=== PATIENT | female | born 1990 | race Hispanic/Latino ===

== ENCOUNTER 2020-04-28 02:32 | Emergency (ER) | payer OTHER, SELFPAY ==
--- NOTE | ~2020-04-28 | XR_ITS ---
EXAMINATION: XR chest 1V portable DATE: 04/28/2020 03:34 INDICATION: Shortness of breath and chest tightness TECHNIQUE: frontal view of the chest was obtained. COMPARISON: Chest radiograph dated 09/18/2018 FINDINGS: The lungs remain clear with no focal airspace opacities, pulmonary edema, pleural effusion or pneumot horax. The cardiomediastinal silhouette is normal. Mild thoracic dextrocurvature. Cholecystectomy cli ps in the right upper quadrant. IMPRESSION: 1. No acute cardiopulmonary disease. Reviewed, dictated and finalized at location A.
[2020-04-28 02:37] VITALS: BP 109/77; PULSE 56; RESP 16; TEMP 36.5; O2SAT 100
[2020-04-28 03:30] LABS: Basophils Percent Auto 0.4 % (0.2-1.2); Eosinophils Absolute Auto 0.3 K/mm3 (0-0.3); Eosinophils Percent Auto 3.3 % (0-4.4); Hematocrit 41.2 % (37.0-47.0); Hemoglobin 14.1 g/dL (12.0-15.0); Immature Granulocyte Absolute 0.07 K/mm3 (0.00-0.031); Immature Granulocyte Percent A 0.7 % (0-0.5); Lymphocytes Absolute Auto 2.08 K/mm3 (0.9-3.2); Lymphocytes Percent Auto 21.6 % (18.3-44.2); Mean Corpuscular HGB Conc 34.2 g/dl (32-36); Mean Corpuscular Hemoglobin 31.1 pg (26-34); Mean Corpuscular Volume 90.7 fl (80-100); Mean Platelet Volume 9.9 fl (7.4-10.4); Monocytes Absolute Auto 0.6 K/mm3 (0.1-0.6); Monocytes Percent Auto 5.7 % (2.6-8.5); Neutrophils Absolute Auto 6.6 K/mm3 (1.3-6.7); Neutrophils Percent Auto 68.3 % (45.5-73.1); Platelet Count Result 283 k/mm3 (150-375); Red Blood Count 4.54 M/mm3 (4.2-5.4); Red Cell Distribution Width 13.1 % (11.5-14.5); White Blood Count 9.6 K/mm3 (4.5-10.0)
[2020-04-28 03:43] LABS: D Dimer 0.27 ug/mL (<0.48)
[2020-04-28 03:44] LABS: Alanine Aminotransferase 83 U/L (4-35); Albumin Level 4.4 g/dL (3.5-5.1); Alkaline Phosphatase 63 U/L (38-126); Aspartate Amino Transferase 60 U/L (14-36); Bilirubin,Total 0.5 mg/dL (0.2-1.3); Blood Urea Nitrogen 8 mg/dL (7-17); Calcium 9.2 mg/dL (8.4-10.2); Carbon Dioxide 28 mmol/L (22-30); Chloride 102 mmol/L (98-107); Estimated Glomerular Filt Rate > 60; Glucose 98 mg/dL (65-105); Potassium 4.3 mmol/L (3.4-5.0); Sodium 135 mmol/L (137-145)
[2020-04-28 04:30] VITALS: BP 112/73; PULSE 71; RESP 16; O2SAT 100
--- NOTE | 2020-04-28 05:50 | ED.URI ---
HPI - URI/Sore Throat General Chief Complaint: Upper Respiratory Infection Stated Complaint: Sore throat, chest tightness Time Seen by Provider: 04/28/20 02:50 History of Present Illness HPI Narrative: Patient is a 29-year-old female who presents ER with upper respiratory complaints. Ongoing for the last 5 days. Began with sinus congestion as well as sore throat and occasional cough. Patient reports she is now slightly more dyspneic and anxious. Reports that she found out that her brother tested positive for COVID-19 and she is exposed him on 04/25/2020. She reports she was in his immediate vicinity for prolonged duration, received a kiss on the cheek from him, and He Was Sneezing around Her. Denies any fevers or chills or sweats. No body aches. Related Data Home Medications Medication Instructions Recorded Confirmed fluoxetine mg 04/28/20 Allergies Allergy/AdvReac Type Severity Reaction Status Date / Time diphenhydramine AdvReac Hyperactive Verified 04/28/20 02:51 [From Tung] Review of Systems Review of Systems: All systems reviewed & are unremarkable except as noted in HPI and below Constitutional: Constitutional: Denies chills, Denies fever(s) and Denies weakness ENT: Denies dizziness, Reports nasal congestion and Reports sore throat Cardiovascular: Cardiovascular: Denies chest pain Respiratory: Respiratory: Reports cough, Reports dyspnea and Denies wheezing Gastrointestinal: Gastrointestinal: Denies abdominal pain, Denies nausea and Denies vomiting Musculoskeletal: Musculoskeletal: Denies myalgias and Denies muscle cramps Psychiatric: Psychiatric: Reports anxiety PMFSH Past Medical History Medical History (Updated 04/28/20 @ 05:55 by Navin Hudson MD) Anxiety Surgical History Surgical History (Updated 04/28/20 @ 05:51 by Navin Hudson MD) No pertinent past surgical history Social History Social History Smoking status: Never smoker Gender identity (if verbalized by the patient): Female Exam Narrative: Exam Narrative: GENERAL: Well-appearing, well-nourished, and in no acute distress. HEAD: Normocephalic, atraumatic. ENT: Mucous membranes moist. Mild posterior oropharynx erythema without tonsillar hypertrophy or exudate. NECK: Supple. CHEST: Clear to auscultation. No respiratory distress. HEART: Regular rate and rhythm. Normal peripheral pulses. EXTREMITIES: Normal range of motion. No edema. NEURO: Alert and oriented x3. Course Course Emergency Course: Patient informed of results. Recommend that she continue social distance as her COVID testing that was performed today would not necessarily indicate whether she had caught something from her brother but only if she got something from her workplace that started on the second. Recommend she follow-up with her primary care doctor to receive further recommendations on when she should return to work. Boyfriend present and has been educated that he should also go home and self isolate and should not stay in her immediate vicinity. Vital Signs Vital signs: Vital Signs Temperature 97.7 F 04/28/20 02:37 Pulse Rate 56 L 04/28/20 02:37 Respiratory Rate 16 04/28/20 02:37 Blood Pressure 109/77 04/28/20 02:37 Pulse Oximetry 100 04/28/20 02:37 Temperature 97.7 F 04/28/20 02:37 Pulse Rate 56 L 04/28/20 02:37 Respiratory Rate 16 04/28/20 02:37 Blood Pressure 109/77 04/28/20 02:37 Pulse Oximetry 100 04/28/20 02:37 MDM - URI/Sore Throat Lab Data Result diagrams: 04/28/20 03:24 04/28/20 03:24 Labs: Lab Results 04/28/20 04/28/20 04/28/20 Range/Units 03:22 03:24 03:24 WBC 9.6 (4.5-10.0) K/mm3 RBC 4.54 (4.2-5.4) M/mm3 Hgb 14.1 (12.0-15.0) g/dL Hct 41.2 (37.0-47.0) % MCV 90.7 (80-100) fl MCH 31.1 (26-34) pg MCHC 34.2 (32-36) g/dl RDW 13.1 (11.5-14.5) % P
[2020-04-28 05:51] VITALS: BP 107/67; PULSE 75; RESP 16; O2SAT 100
[2020-04-28 14:57] LABS: SARS-CoV-2 RNA PCR Negative
== END 2020-04-28 06:08 | disposition home or self-care (01) ==
PROVIDERS: Emergency Provider Emergency Medicine; PCP Emergency Medicine
DX: J06.9 Acute upper respiratory infection, unspecified (principal); Z20.828 Contact with and (suspected) exposure to other viral communicable diseases; F41.9 Anxiety disorder, unspecified
CPT/HCPCS: 36415; 71045; 80053; 85025; 85380; 87635; 87880; 99283; C9803; U0003

== ENCOUNTER 2020-05-14 13:01 | Outpatient (CLI) | payer OTHER, SELFPAY ==
--- NOTE | ~2020-05-14 | XR_ITS ---
EXAMINATION: XR thoracic spine 3V EXAM DATE: 05/14/2020 13:30 INDICATION: Back pain. TECHNIQUE: Frontal and lateral projections of the thoracic spine as well as lateral swimmers projecti on of the upper thoracic spine for interpretation. There is no prior study for comparison. FINDINGS: The vertebral bodies are aligned in the AP dimension. There is mild lower thoracic disc di sease. Mild chronic appearing anterior wedging at T12. The vertebral body and disc heights are otherw ise well maintained. No endplate erosive change. Mild thoracolumbar spine curvature which could be positional. There are cholecystectomy clips. IMPRESSION: Mild lower thoracic disc disease. Reviewed, dictated and finalized at location A.
--- NOTE | ~2020-05-14 | XR_ITS ---
EXAMINATION: XR lumbar spine 2-3V EXAM DATE: 05/14/2020 13:30 INDICATION: Low back pain. TECHNIQUE: Lumber spine frontal, lateral, lateral L5-S1 projections for interpretation. There is no prior study for comparison. FINDINGS: There is mild disc disease at T11-12 and T12-L1, mild anterior wedge appearance to T11 whi ch could be congenital or old compression fracture. Mild lower lumbar facet arthropathy. No endplate erosive change or spondylolysis. Paraspinal soft tissue is unremarkable. Sacrum, sacroiliac joints, s acral arcuate lines are intact. There are cholecystectomy clips. IMPRESSION: 1. Mild lower thoracic disc disease. 2. Mild lower lumbar facet arthropathy. Reviewed, dictated and finalized at location A.
--- NOTE | ~2020-05-14 | XR_ITS ---
EXAMINATION: XR cervical spine 4-5V EXAM DATE: 05/14/2020 13:30 INDICATION: Neck pain. TECHNIQUE: Cervical spine frontal, lateral, lateral swimmers, and open-mouth odontoid projections. There is no prior study for comparison. FINDINGS: There is mild reversal of the normal cervical lordosis which may be positional or spasm. Th ere is no evidence of acute cervical fracture. The odontoid process is intact. Pre-dens space is no rmal. Prevertebral soft tissue is normal. There are no soft tissue abnormalities identified. The vertebral bodies are aligned. No evidence of arthropathy. Vertebral body and disc heights are well-ma intained. IMPRESSION: Mild reversal of normal cervical lordosis. Reviewed, dictated and finalized at location A.
== END 2020-05-14 13:02 | disposition home or self-care (01) ==
LOC: ANHIMG 13:05
PROVIDERS: PCP Emergency Medicine; Visit Provider Emergency Medicine
DX: M54.2 Cervicalgia (principal); M51.34 Other intervertebral disc degeneration, thoracic region; M51.24 Other intervertebral disc displacement, thoracic region
CPT/HCPCS: 72050; 72072; 72100

== ENCOUNTER 2020-06-29 01:13 | Outpatient (CLI) | payer OTHER, SELFPAY ==
[2020-06-29 16:32] LABS: SARS-CoV-2 RNA PCR Negative
== END 2020-06-29 01:14 | disposition home or self-care (01) ==
LOC: ANHCOVIDDT 01:13
PROVIDERS: PCP Emergency Medicine; Visit Provider Obstetrics & Gynecology
DX: Z01.812 Encounter for preprocedural laboratory examination (principal); Z20.828 Contact with and (suspected) exposure to other viral communicable diseases
CPT/HCPCS: 87635; C9803; U0003

== ENCOUNTER 2020-09-04 21:33 | Emergency (ER) | payer OTHER, SELFPAY ==
[2020-09-04] VITALS (7 sets, daily range): BP systolic 113–114; BP diastolic 69–81; PULSE 79–80; RESP 18–24; TEMP 36.8; O2SAT 97–99
--- NOTE | 2020-09-04 22:25 | ED.ANXIETY ---
HPI - Anxiety General Chief Complaint: Anxiety Stated Complaint: panic attack Time Seen by Provider: 09/04/20 21:45 Source: patient Mode of arrival: EMS Limitations: no limitations History of Present Illness HPI narrative: This is 29 year old female with history of anxiety and depression who presents after having a panic attack. Patient reports she has severe anxiety. She has been having daily panic attacks. She has been intermittently taking prozac for her anxiety, but she has not been on this medication for months. She reports she was fired by her PCP Dr. Walls months ago, and she has been on a waiting list to get treatment at [facility] for 2 months. She states she lives her boyfriend who seems to be her trigger for a lot of her attacks. She reports he left the house tonight and she developed a panic attack. She states she is unable to control them. She reports she is having trouble sleeping and she has tried calming tea. She states her family and friends do not like her boyfriend because of how he treats her so she no one will listen to her about her attacks. She denies suicidal or homicidal thoughts today. On EMS arrival, patient was found to be hyperventilating they were able to get her to calm down her breathing. She reports she still feels shaking all over. Related Data Home Medications Medication Instructions Recorded Confirmed fluoxetine 10 mg PO DAILY 04/28/20 06/25/20 albuterol sulfate [ProAir HFA] 1 puff INHALATION DIRECTED PRN 06/25/20 06/25/20 ibuprofen 600 mg PO Q6H PRN 06/25/20 06/25/20 Allergies Allergy/AdvReac Type Severity Reaction Status Date / Time diphenhydramine AdvReac Hyperactive Verified 06/25/20 08:42 [From Benadryl] Review of Systems Review of Systems: All systems reviewed & are unremarkable except as noted in HPI and below Cardiovascular: Cardiovascular: Denies chest pain and Reports rapid heart rate (with panic attacks) Respiratory: Respiratory: Denies cough and Reports dyspnea (feels like she cant breath with panic attacks. ) Gastrointestinal: Gastrointestinal: Denies abdominal pain, Reports nausea and Reports vomiting Psychiatric: Psychiatric: Reports anxiety, Denies homicidal ideation and Denies suicidal ideation [facility] Past Medical History Medical History Anxiety Asthma Back pain Depression Eczema Obesity Surgical History Surgical History No pertinent past surgical history Social History Social History Smoking status: Never smoker Alcohol intake: current Drinks per week: 1 Gender identity (if verbalized by the patient): Female Spiritual care concerns: No Exam Const: General: no acute distress and alert Orientation/consciousness: patient oriented x3 HENMT: Head: normocephalic and atraumatic Face and sinus: face symmetric Throat: posterior oropharynx normal Eyes: EOM: EOMs intact bilaterally Chest: Chest palpation & inspection: normal inspection of the chest Resp: Effort & Inspection: normal respiratory effort and no retractions Auscultation: clear to auscultation bilaterally Cardio: Rate: regular rate Rhythm: regular rhythm Heart sounds: no murmurs GI: GI Palp: Yes Soft to palpation, No Tenderness to palpation present (GI) and No Guarding due to palpation present (GI) Auscultation: normal bowel sounds Skin: General skin exam: normal color Rashes: no rashes Neuro: General: patient oriented x3 and moves all extremities Extrem: General: no pedal edema Psych: Affect: Sad affect present Attitude: cooperative Thought content: No Suicidality present and No Homicidality present Course Reevaluation(s) Reevaluation #1: I have discussed with patient that she will need to get established with a new primary care physician. We discussed ideas for how to deal with
[2020-09-04] MEDS: ALPRAZolam (*CRX) 0.25 MG TABLET PO (22:34)
== END 2020-09-04 23:48 | disposition home or self-care (01) ==
PROVIDERS: Emergency Provider General Practice
DX: F41.9 Anxiety disorder, unspecified (principal); J45.909 Unspecified asthma, uncomplicated; F32.9 Major depressive disorder, single episode, unspecified; E66.9 Obesity, unspecified; Z68.30 Body mass index [BMI] 30.0-30.9, adult
CPT/HCPCS: 81025; 99283; A9270

== ENCOUNTER 2020-12-23 19:56 | Emergency (ER) | payer OTHER, SELFPAY ==
[2020-12-23 20:00] VITALS: BP 113/81; PULSE 110; RESP 18; TEMP 36.7; O2SAT 99
--- NOTE | 2020-12-23 20:33 | PC.NURSE ---
Called [place] poison control per the dose the pt took and her weight it was a non toxic dose. They recommend baseline labs including a mag and baseline EKG since it can cause a prolonged QT. Dose usually peaks in 1-3 hours.
[2020-12-23 20:51] LABS: Basophils Absolute Auto 0.1 K/mm3 (0.0-0.1); Basophils Percent Auto 0.6 % (0.2-1.2); Eosinophils Absolute Auto 0.2 K/mm3 (0-0.3); Eosinophils Percent Auto 2.6 % (0-4.4); Hematocrit 42.4 % (37.0-47.0); Hemoglobin 14.5 g/dL (12.0-15.0); Immature Granulocyte Absolute 0.06 K/mm3 (0.00-0.031); Immature Granulocyte Percent A 0.7 % (0-0.5); Lymphocytes Absolute Auto 1.91 K/mm3 (0.9-3.2); Lymphocytes Percent Auto 21.9 % (18.3-44.2); Mean Corpuscular HGB Conc 34.2 g/dl (32-36); Mean Corpuscular Hemoglobin 31.2 pg (26-34); Mean Corpuscular Volume 91.2 fl (80-100); Mean Platelet Volume 9.8 fl (7.4-10.4); Monocytes Absolute Auto 0.6 K/mm3 (0.1-0.6); Monocytes Percent Auto 6.7 % (2.6-8.5); Neutrophils Absolute Auto 5.9 K/mm3 (1.3-6.7); Neutrophils Percent Auto 67.5 % (45.5-73.1); Platelet Count Result 305 k/mm3 (150-375); Red Blood Count 4.65 M/mm3 (4.2-5.4); Red Cell Distribution Width 13.3 % (11.5-14.5); White Blood Count 8.7 K/mm3 (4.5-10.0)
[2020-12-23 20:54] LABS: Add Urine Microscopic? YES; Amorphous Sediment Urine Few; Appearance Urine Clear (Clear); Bacteria Urine Trace /hpf; Bilirubin Urine Negative (Negative); Blood Urine Negative (Negative); Color Urine Colorless (Yellow); Glucose Urine UA Negative (Negative); Ketones Urine Negative (Negative); Leukocyte Esterase Ur 2+ LEU/UL (Negative); Nitrate Urine Negative (Negative); Protein Urine Negative (Negative); Squamous Epithelial Cell Urine Occasional /hpf (Few); Urobilinogen Urine Negative mg/dL (<2.0)
--- NOTE | 2020-12-23 20:59 | ECG_ITS ---
Measurements Intervals [place] Rate: 85 P: 51 WI: 210 QRS: 64 QRSD: 82 T: 41 QT: 388 QTc: 462 Interpretive Statements SINUS RHYTHM WITH FIRST DEGREE AV BLOCK POSSIBLE LEFT ATRIAL ENLARGEMENT ABNORMAL ECG Electronically Signed On 12-24-2020 7:13:43 CERTIFIED BREASTFEEDING EDUCATOR by Hola Martinez D.O.
[2020-12-23 21:01] LABS: Partial Thromboplastin Time 30.7 SECONDS (22.3-36.8); Prothrombin Time 13.9 Seconds (11.1-14.7); Specific Grav Ur 1.002 (1.001-1.035)
[2020-12-23 21:03] LABS: Acetaminophen < 10 ug/mL (10-30); Ethanol 89 mg/dL (<10); Salicylate < 1.0 mg/dL (2-20)
[2020-12-23 21:04] LABS: Alanine Aminotransferase 202 U/L (4-35); Albumin Level 4.7 g/dL (3.5-5.1); Alkaline Phosphatase 57 U/L (38-126); Anion Gap 12 mmol/L (8-16); Aspartate Amino Transferase 180 U/L (14-36); Bilirubin,Total 0.5 mg/dL (0.2-1.3); Blood Urea Nitrogen 8 mg/dL (7-17); Calcium 9.4 mg/dL (8.4-10.2); Carbon Dioxide 23 mmol/L (22-30); Chloride 106 mmol/L (98-107); Estimated CRCL calculation 124 ml/min; Estimated Glomerular Filt Rate > 60; Glucose 103 mg/dL (65-105); Potassium 3.6 mmol/L (3.4-5.0); Sodium 141 mmol/L (137-145)
[2020-12-23 21:15] LABS: Amphetamine Screen Urine Negative (Negative); Barbiturate Screen Urine Negative (Negative); Benzodiazepines Screen Urine Negative (Negative); Cannabinoid Screen Urine Negative (Negative); Cocaine Screen Urine Negative (Negative); Magnesium 1.9 mg/dL (1.6-2.3); Methadone Screen Urine Negative (Negative); Opiate Screen Urine Negative (Negative); Phencyclidine Screen Urine Negative (Negative)
[2020-12-23 22:31] LABS: Free T4 Free Thyroxine Reflex 0.85 ng/dL (0.78-2.19)
[2020-12-23 22:51] VITALS: BP 98/65; PULSE 96; RESP 16; O2SAT 95
[2020-12-23 23:31] LABS: Total Triiodothyronine (T3) 1.31 NG/ML (0.97-1.69)
--- NOTE | 2020-12-24 01:12 | ED.PSYCH ---
HPI - Psych General Chief Complaint: Psychiatric Symptoms Stated Complaint: overdose Time Seen by Provider: 12/23/20 19:56 History of Present Illness HPI Narrative: Patient is a 30-year-old female who presents ER after ingesting 300 mg of hydroxyzine. Patient reports that she is having a panic attack because her boyfriend is in [place] and has been cheating on her. She reports she has had some alcohol to drink today. She does have history of suicide attempt but reports this was not an attempt on her life, who is merely an attempt to control her anxiety. Patient is not experiencing any auditory or visual hallucinations. She has no other complaints at this time. Denies coingestants outside of alcohol. Related Data Home Medications Medication Instructions Recorded Confirmed fluoxetine 10 mg PO DAILY 04/28/20 06/25/20 albuterol sulfate [ProAir HFA] 1 puff INHALATION DIRECTED PRN 06/25/20 06/25/20 ibuprofen 600 mg PO Q6H PRN 06/25/20 06/25/20 buspirone 7.5 mg BID 12/23/20 hydroxyzine HCl 12/23/20 Allergies Allergy/AdvReac Type Severity Reaction Status Date / Time diphenhydramine AdvReac Hyperactive Verified 12/23/20 20:08 [From Benadryl] Review of Systems Review of Systems: All systems reviewed & are unremarkable except as noted in HPI and below Constitutional: Constitutional: Denies chills, Denies fever(s) and Denies weakness Cardiovascular: Cardiovascular: Denies chest pain and Denies radiating jaw, neck or arm pain Respiratory: Respiratory: Denies cough and Denies dyspnea Gastrointestinal: Gastrointestinal: Denies abdominal pain, Denies nausea and Denies vomiting Psychiatric: Psychiatric: Reports anxiety, Denies depression, Denies homicidal ideation and Denies suicidal ideation PMF Past Medical History Medical History Anxiety Asthma Back pain Depression Eczema Obesity Surgical History Surgical History No pertinent past surgical history Social History Social History Smoking status: Never smoker Alcohol intake: current Drinks per week: 1 Gender identity (if verbalized by the patient): Female Spiritual care concerns: No Exam Narrative: Exam Narrative: GENERAL: Well-appearing, well-nourished, and in no acute distress. HEAD: Normocephalic, atraumatic. ENT: Mucous membranes moist. CHEST: Clear to auscultation. No respiratory distress. HEART: Regular rate and rhythm. Normal peripheral pulses. ABDOMEN: Soft, nontender, nondistended. EXTREMITIES: Normal range of motion. No edema. NEURO: Alert and oriented x3. PSYCH: Normal mood and affect. Course Course Emergency Course: Nontoxic ingestion. Cleared for evaluation by crisis. Reevaluation(s) Reevaluation #1: Seen by crisis. Given resources. D/c. Date: 12/24/20 Time: 01:57 Vital Signs Vital signs: Vital Signs Temperature 98.1 F 12/23/20 20:00 Pulse Rate 110 H 12/23/20 20:00 Respiratory Rate 18 12/23/20 20:00 Blood Pressure 113/81 12/23/20 20:00 Pulse Oximetry 99 12/23/20 20:00 Temperature 98.1 F 12/23/20 20:00 Pulse Rate 70 12/24/20 01:54 Respiratory Rate 20 12/24/20 01:54 Blood Pressure 107/68 12/24/20 01:54 Pulse Oximetry 99 12/24/20 01:54 MDM - Psych Lab Data Result diagrams: 12/23/20 20:41 12/23/20 20:41 Labs: Lab Results 12/23/20 12/23/20 12/23/20 Range/Units 20:41 20:41 20:41 WBC 8.7 (4.5-10.0) K/mm3 RBC 4.65 (4.2-5.4) M/mm3 Hgb 14.5 (12.0-15.0) g/dL Hct 42.4 (37.0-47.0) % MCV 91.2 (80-100) fl MCH 31.2 (26-34) pg MCHC 34.2 (32-36) g/dl RDW 13.3 (11.5-14.5) % Plt Count 305 (150-375) k/mm3 MPV 9.8 (7.4-10.4) fl Immature Gran % (Auto) 0.7 H (0-0.5) % Neut % (Auto) 67.5 (45.5-73.1) % Lymph % (Auto) 21.9 (18.
--- NOTE | 2020-12-24 01:14 | PC.NURSE ---
carolina, pharmacist with poison control called to find out what the plan was for this pt. Will call back.
--- NOTE | 2020-12-24 01:25 | PC.NURSE ---
Crisis at bedside
[2020-12-24 01:54] VITALS: BP 107/68; PULSE 70; RESP 20; O2SAT 99
--- NOTE | 2020-12-24 02:08 | PC.NURSE ---
Pt meets criteria for safety contract with Crisis. Pt and MD agreeable to plan. Pt to be discharged home.
== END 2020-12-24 02:11 | disposition home or self-care (01) ==
PROVIDERS: Emergency Provider Emergency Medicine; PCP Emergency Medicine
DX: F41.9 Anxiety disorder, unspecified (principal); J45.909 Unspecified asthma, uncomplicated; F32.9 Major depressive disorder, single episode, unspecified; E66.9 Obesity, unspecified; Z68.30 Body mass index [BMI] 30.0-30.9, adult; I44.0 Atrioventricular block, first degree; R94.31 Abnormal electrocardiogram [ECG] [EKG]
CPT/HCPCS: 36415; 80053; 80307; 81001; 83735; 84439; 84443; 84480; 85025; 85610; 85730; 93005; 99284